=== PATIENT | male | born 1975 | race Caucasian/White ===

== ENCOUNTER 2022-06-02 16:20 | Emergency (ER) | payer MEDICAID ==
[2022-06-02] MEDS ORDERED: Sodium Chloride 0.9% 10 ML Syringe FLUSH PRN (16:26)
[2022-06-02] MEDS ORDERED: Lactated Ringers 1,000 ML IV ONE (16:29)
[2022-06-02] MEDS ORDERED: fentaNYL 100 MCG/2 ML SDV IVPUSH ONE ×2 (16:29→17:12)
[2022-06-02] MEDS ORDERED: Ondansetron 4 MG/2 ML SDV IV ONE (16:30)
[2022-06-02 16:54] LABS: PTT,PARTIAL THROMBOPLSTIN TIME 21.8 SEC (22.0-34.0)
[2022-06-02 16:56] LABS: ANION GAP 14.4 mEq/L (7-13); CHLORIDE,CL 105 mmol/L (98-107); SODIUM,NA 138 mmol/L (136-145)
[2022-06-02 17:05] LABS: ESTIMATED GFR 63 mL/min (>=60)
[2022-06-02] MEDS ORDERED: Diphtheria,Pertussis(Acell),Tetanus Vaccine 0.5 ML Syringe IM ONE (17:21)
[2022-06-02] MEDS ORDERED: ceFAZolin 1 GM in Sodium Chloride 0.9% 50 ML IV ONE (17:35)
== END 2022-06-02 18:12 ==
LOC: DL.ED 16:20
DX: S93.124A Dislocation of metatarsophalangeal joint of right lesser toe(s), initial encounter (principal); S92.351B Displaced fracture of fifth metatarsal bone, right foot, initial encounter for open fracture; S32.810A Multiple fractures of pelvis with stable disruption of pelvic ring, initial encounter for closed fracture; S52.591A Other fractures of lower end of right radius, initial encounter for closed fracture; F15.10 Other stimulant abuse, uncomplicated; Z79.899 Other long term (current) drug therapy; Z20.822 Contact with and (suspected) exposure to COVID-19; Z23 Encounter for immunization; W18.39XA Other fall on same level, initial encounter
CPT/HCPCS: 36415; 71045; 72020; 72170; 73100-RT; 73600-RT; 80053; 80307; 82150; 83690; 85025; 85610; 85730; 86850; 86900; 86901; 90471; 90715; 96361; 96365; 96375; 96376; 99285-25; J0690; J2405; J3010; J7120; U0002